=== PATIENT | female | born 1985 | race Caucasian/White ===

== ENCOUNTER 2025-07-05 09:28 | Outpatient (CLI) | payer MEDICAID ==
[2025-07-05] MEDS ORDERED: iohexol 300mg/ml 100ml inj. ONE (10:13)
--- NOTE | 2025-07-05 13:35 | RADIOLOGY REPORT ---
Exam: CT CT ABDOMEN PELVIS W/ IV CONTRAST History: MALIGNANT NEOPLASM OF ENDOMETRIUM COMPARISON: None Technique: Multidetector spiral CT of the abdomen and pelvis was performed from lung bases to pubic symphysis. Intravenous contrast was administered during this examination. Portal venous imaging was obtained. Axial, coronal and sagittal multiplanar reformats were performed by the technologist on a separate workstation. Radiation Dose : Abdomen/Pelvis: CTDIvol 16 mGy, DLP 817 mGy*cm. CONTRAST: Type of contrast: Omni 300 Contrast injected: 100 mL Findings: Lung Bases: No acute or significant lung base finding. Normal heart size. No pleural or pericardial effusion. Liver: Subcentimeter likely cyst in the right lobe of the liver. Gallbladder and biliary Tree: Gallbladder is surgically absent. Spleen: Unremarkable Pancreas: The pancreas is normal in appearance without focal lesions or abnormal enhancement. Adrenal Glands: Unremarkable Kidneys: No hydronephrosis. Bladder: Unremarkable Bowel: The stomach is grossly normal in appearance. Small bowel and colon are normal in caliber and d istribution. Normal appendix is visualized in the right lower quadrant without findings of appendicit is. Ascites: Trace free fluid in the pelvis. Lymphadenopathy: No mesenteric, retroperitoneal or periportal lymphadenopathy. Abdominal wall and Mesentery: Unremarkable. Vasculature: The visualized abdominal aorta is normal in size and caliber. Abdominal and pelvic vess els demonstrate normal enhancement. Pelvic Organs: Endometrial canal is dilated with fluid. Musculoskeletal: No aggressive focal bony lesions, acute fractures or dislocation. IMPRESSION: 1. No acute abdominal or pelvic finding. No definite evidence of metastatic disease in the abdomen an d pelvis. Dilated fluid-filled endometrial cavity consistent with history of endometrial carcinoma. T race free fluid in the pelvis could be physiologic. Hypodense lesion in the liver is likely a cyst. C linical correlation and continued follow-up is recommended. Radiation optimization: All CT scans at this facility use at least one of these dose optimization obi hniques: Automated exposure control mA and/or kV adjustment per patient size (includes targeted exams where dose is matched to clinical indication) or iterative reconstruction. HS:Y
--- NOTE | 2025-07-05 20:03 | RADIOLOGY REPORT ---
DI CHEST,TWO VIEWS CLINICAL HISTORY: ENDOMETRAIL CARCINOMA COMPARISON: None TECHNIQUE: Frontal and lateral view of the chest was obtained FINDINGS: Lines and Tubes: None Lungs: No focal consolidation. Pleura: No effusion. No pneumothorax. Cardiomediastinal contours: Unremarkable Bones: No acute osseous abnormality. IMPRESSION: No acute cardiopulmonary disease.
== END 2025-07-05 23:59 | disposition home or self-care (01) ==
LOC: RAD 09:28
PROVIDERS: ATTEND Obstetrics & Gynecology
DX: C54.1 Malignant neoplasm of endometrium (principal)
CPT/HCPCS: 71046; 74177; Q9967

== ENCOUNTER 2025-10-14 09:49 | Day surgery (SDC) | payer MEDICAID ==
[~2025-10-14] VITALS: Ht 165.1 cm; Wt 70.7 kg
[~2025-10-14 09:49] MED LIST: ESTR1PAT95 TOP; ringers solution, lacted 1,000 ML IV SCH; simethicone 40mg/0.6ml oral drops 15ml PO ONE
[2025-10-14 10:05] VITALS: BP 126/66; PULSE 50; RESP 16; TEMP 97.4; O2SAT 100
[2025-10-14] MEDS ORDERED: LIDOcaine 1%/PF 5ML 10 MG/ML VIAL ONE (13:00)
[2025-10-14] MEDS ORDERED: propofol inj 20 ML IV ONE (13:00)
[2025-10-14 13:21] VITALS: BP 119/55; PULSE 68; RESP 14; O2SAT 94
[2025-10-14 13:30] VITALS: BP 112/59; PULSE 40; RESP 12; O2SAT 100
[2025-10-14 13:40] VITALS: BP 115/69; PULSE 41; RESP 14; O2SAT 100
[2025-10-14 13:50] VITALS: BP 120/66; PULSE 41; RESP 13; O2SAT 100
[2025-10-14 14:00] VITALS: BP 121/74; PULSE 56; RESP 13; O2SAT 100
== END 2025-10-14 14:11 | disposition home or self-care (01) ==
LOC: PAS 09:49
PROVIDERS: ATTEND Internal Medicine Gastroenterology
DX: R19.7 Diarrhea, unspecified (principal); K21.9 Gastro-esophageal reflux disease without esophagitis; Z79.899 Other long term (current) drug therapy; Z90.49 Acquired absence of other specified parts of digestive tract; Z88.1 Allergy status to other antibiotic agents
CPT/HCPCS: 45380; J2704; J3490; J7120; Z7512; 45378; A4615; A4620